=== PATIENT | female | born 1960 | race Caucasian/White ===

== ENCOUNTER 2016-11-28 18:03 | Emergency (ER) | payer SELFPAY ==
--- NOTE | 2016-11-28 19:43 | Emergency Department Report ---
Chief Complaint: Abdominal Pain Stated Complaint: EMESIS X 1 DAY Time Seen by Provider: 11/28/16 19:41 - HPI History of Present Illness: pt c/o abd pain and vomiting x 1 day - ROS Review of Systems: denies abd tenderness + leg pain - Exam Physical Exam: obese female, no acute distress. abd soft and not tender at this time. MSE screening note: Focused history and physical exam performed. Due to findings the following was ordered: labs ED Disposition for MSE Condition: Stable
[2016-11-28 19:45] VITALS: BP 137/91
[2016-11-28 21:04] LABS: Basophils % (Auto) 0.4 % (0.0-1.8); Eosinophils % (Auto) 1.5 % (0.0-4.3); Hemoglobin 12.8 gm/dl (10.1-14.3); Mean Corpuscular HGB Conc 33 % (30-34); Mean Corpuscular Volume 78 fl (79-97); Platelet Count 200 K/mm3 (140-440); Red Cell Distribution Width 16.4 % (13.2-15.2); White Blood Count 9.5 K/mm3 (4.5-11.0)
[2016-11-28 21:14] LABS: Alanine Aminotransferase 12 units/L (7-56); Albumin 4.3 g/dL (3.9-5); Albumin/Globulin Ratio 1.4 %; Alkaline Phosphatase 51 units/L (35-129); Anion Gap 21 mmol/L; BUN/Creatinine Ratio 28.75; Bilirubin,Total 0.4 mg/dL (0.1-1.2); Blood Urea Nitrogen 23 mg/dL (7-17); Carbon Dioxide 21 mmol/L (22-30); Chloride 99.6 mmol/L (98-107); Glucose 181 mg/dL (65-100); Lipase 28 units/L (13-60); Potassium 4.4 mmol/L (3.6-5.0); Sodium 137 mmol/L (137-145); Total Protein 7.4 g/dL (6.3-8.2)
[2016-11-28 21:16] LABS: Mean Corpuscular Hemoglobin 26 pg (28-32)
[2016-11-28 21:54] LABS: Bilirubin,Urine NEG (Negative); Blood,Urine NEG (Negative); Ketones,Urine 20 mg/dL (Negative); Leukocyte Esterase,Urine NEG (Negative); Mucus,Urine FEW /HPF; Nitrite,Urine NEG (Negative); Protein,Urine <15 mg/dL mg/dL (Negative); Urobilinogen,Urine < 2.0 mg/dL (<2.0)
--- NOTE | 2016-12-01 01:19 | ED Elopement Review ---
ED Pt Elopement review - Results review Lab results: Laboratory Tests 11/28/16 11/28/16 11/28/16 20:42 20:42 21:00 WBC 9.5 RBC 5.00 Hgb 12.8 Hct 39.0 MCV 78 L MCH 26 L MCHC 33 RDW 16.4 H Plt Count 200 Lymph % (Auto) 6.4 L [place] % (Auto) 8.4 H Eos % (Auto) 1.5 Baso % (Auto) 0.4 Lymph # 0.6 L [place] # 0.8 Eos # 0.1 Baso # 0.0 Seg Neutrophils % 83.3 H Seg Neutrophils # 7.9 H Carbon Dioxide 21 L BUN 23 H Creatinine 0.8 Estimated GFR > 60 BUN/Creatinine Ratio 28.75 Glucose 181 H Calcium 9.0 Total Bilirubin 0.4 AST 12 ALT 12 Alkaline Phosphatase 51 Total Protein 7.4 Albumin 4.3 Albumin/Globulin Ratio 1.4 Lipase 28 Urine Color Yellow Urine Turbidity Clear Urine pH 6.0 Ur Specific [place] 1.021 Urine Protein <15 mg/dl Urine Glucose (UA) Neg Urine Ketones 20 Urine Blood Neg Urine Nitrite Neg Urine Bilirubin Neg Urine Urobilinogen < 2.0 Ur Leukocyte Esterase Neg Urine WBC (Auto) 0.0 Urine RBC (Auto) 0.0 U Epithel Cells (Auto) < 1.0 Urine Mucus Few Sodium 137, potassium 4.4, chloride 99.6, anion gap 21 - Call Back decision Pt Call Back Decision: No action required
== END 2016-11-29 02:53 | disposition left against medical advice (07) ==
LOC: ED 18:03
DX: R10.9 Unspecified abdominal pain (principal); R11.10 Vomiting, unspecified; M79.609 Pain in unspecified limb; Z53.21 Procedure and treatment not carried out due to patient leaving prior to being seen by health care provider
CPT/HCPCS: 36415; 80053; 81001; 83690; 85025